=== PATIENT | male | born 1965 | race Caucasian/White ===

== ENCOUNTER 2022-08-26 06:50 | Emergency (ER) | payer OTHER, SELFPAY ==
[2022-08-26 07:08] VITALS: BP 129/87; PULSE 66; RESP 18; TEMP 36.1; O2SAT 100
--- NOTE | 2022-08-26 07:38 | CRLHL7_ITS ---
For Patients: As a result of the Cures Act, medical imaging exams and procedure reports are released immediately into your electronic medical record. You may view this report before your referring provider. If you have questions, please contact your health care provider. INDICATION: Left upper chest pain INDICATION: Left upper chest pain. TECHNIQUE: Chest 1 view. COMPARISON: None FINDINGS: Cardiovascular and mediastinum: Heart size and vasculature are normal in caliber and appearance. Mediastinum is within normal limits. Lungs and pleural space: Lungs are clear. No sign of infiltrate or mass. No sign of pleural effusion. No pneumothorax. Bones and soft tissues: No significant findings. IMPRESSION: There is no acute airspace disease. Dictated by Bruce Worthington MD @ 08/26/2022 7:59:33 AM Dictated by: Bruce Worthington MD @ 08/26/2022 07:59:45 (Electronically Signed)
--- NOTE | 2022-08-26 07:46 | ED_ITS ---
HPI - General Adult General Chief complaint: Chest Pain Stated complaint: Severe chest pains 7+ days Time Seen by Provider: 08/26/22 07:14 History of Present Illness HPI narrative: 56-year-old man presenting to the emergency department with complaint of right chest and upper back pain that has been going on now for steadily increasing over the last week or so. Does not recall a specific injury. Has been doing some travel spending time attending to I believe his [id number] had heart attack. His pain was so bad though he had to leave the cabin where he had been staying returning for evaluation. He is not having radicular symptoms down his arms. Not really pleuritic. Worse with left head flexion or rotation to the left a little bit of his neck. Later in course does acknowledge that he has been aching into his forearm or his thinks he is having some tendon problems in his forearm. Denies a history of discogenic disease. Related Data Home Medications Medication Instructions Recorded Confirmed minocycline 100 mg capsule 100 mg PO DAILY 08/26/22 08/26/22 Allergies Allergy/AdvReac Type Severity Reaction Status Date / Time No Known Drug Allergies Allergy Verified 08/26/22 07:08 Review of Systems Status of ROS: Reports: 6 or more systems reviewed and unremarkable except as noted in History and below [facility] Social History service: No Exam Narrative: Exam Narrative: Clearly very uncomfortable. Wincing and splinting a little bit in discomfort. Very tender to palpation over the rhomboids on the left and and into the left side trapezius and up the paracervical musculature little bit. He has a indicated pain in the left low medial pectoralis. This is not really able to be reproduced. Has a somewhat prominent left clavicle medially versus the right. I do not feel any supraclavicular crepitus. There are no other swellings in the area. Raises his arms over his head without notable difficulty. Lungs appear to be clear. Deep breath though causes some discomfort. Heart in a regular rate and rhythm. Is well perfused with good strength peripherally. No sensory deficits appreciated. Const: Vital Signs, click to edit/add: Vital Signs - 24 hr 08/26/22 07:08 Temperature 97.0 F L Pulse Rate [Right Pulse Oximeter] 66 Respiratory Rate 18 Blood Pressure [Ri ght Upper Arm] 129/87 Pulse Oximetry 100 Oxygen Delivery Me thod Room Air Documenting provider has reviewed patient's vital signs: yes Course Vital Signs Vital signs: Initial Vital Signs Temperature 97.0 F L 08/26/22 07:08 Temperature Source Temporal Artery Scan 08/26/22 07:08 Pulse Rate 66 08/26/22 07:08 Respiratory Rate 18 08/26/22 07:08 Blood Pressure 129/87 08/26/22 07:08 Blood Pressure Mean 101 08/26/22 07:08 Blood Pressure Position Sitting 08/26/22 07:08 Pulse Oximetry 100 08/26/22 07:08 Oxygen Delivery Method Room Air 08/26/22 07:08 Vital Signs Temperature 97.0 F L 08/26/22 07:08 Pulse Rate 66 08/26/22 07:08 Respiratory Rate 18 08/26/22 07:08 Blood Pressure 129/87 08/26/22 07:08 Pulse Oximetry 100 08/26/22 07:08 Oxygen Delivery Method Room Air 08/26/22 07:08 Temperature 97.0 F L 08/26/22 07:08 Pulse Rate 50 L 08/26/22 10:00 Respiratory Rate 18 08/26/22 10:00 Blood Pressure 123/77 08/26/22 10:00 Pulse Oximetry 98 08/26/22 10:00 Oxygen Delivery Method Room Air 08/26/22 08:00 Medical Decision Making MDM Narrative Medical decision making narrative: This appears to be a chest wall/musculoskeletal in origin. I think it would be prudent to do a chest x-ray. Rough evaluation for some larger vessel anomaly but in particular looking for pneumomediastinum or pneumothorax. Duration of persistent pain suggests unlikely to be cardiac in origin. I suspect more of jumped facet and recruitment muscle resulting in some spasming. EKG was already done I have reviewed as below. With this in mind we decided to proceed with anesthetic directly applied to the trapezial and rhomboid musculature. Informed consent obtained and I injected with a total of 15 mL of 0.25 % bupivacaine in these areas. I have ordered also for dose of prednisone and ketorolac. Chest x-ray reviewed by me is without pneumothorax or pneumomediastinum. Seems to have some prominent markings in the right perihilar area but I do not see clear infiltrate or effusion. No acute abnormality. On reassessment is not much changed. Still seems quite uncomfortable. This point will proceed with some cardiac labs. Looking also for potential pulmonary embolus though I doubt this. Will also give couple tabs of Percocet. Pain improved. Seems more tolerable. Labs are unremarkable. See patient discharge plan Lab Data Lab results reviewed: Yes I reviewed the patient's lab results Labs: Lab Results 08/26/22 Range/Units 09:25 D-Dimer Quant (PE/DVT) 0.34 (0.00-0.50) ug/ml C-Reactive Protein 0.7 (0.5-1.0) mg/dL NT-Pro-B Natriuret Pep 131 pg/mL POC Troponin I 0.00 L (0.01-0.04) ng/ml ECG Data Attestation: I personally reviewed and interpreted this ECG as follows: (Normal sinus rhythm rate of 63. No ischemic changes appreciated. ) Discharge Plan Discharge Clinical Impression: Muscle spasm, Chest wall pain Patient Disposition: Home w/ Parent or Adult Condition: Stable Additional Instructions: I am wondering if maybe you have a jumped facet and your neck. And this is causing inflammation resulting muscle spasm. I would do some stretches including neck pull-downs gently a little deeper each time. See handout for upper back stretches and strengthening. Can take up to 800 mg of ibuprofen per dose or alternatively up to 500 mg of naproxen 2 times daily. Either can be combined with up to 1000 mg of a cetaminophen per dose. Keep in mind that each tablet of Percocet contains 325 mg of acetaminophen. Consider alternating warm and cold packs. Might need an appointment for consideration of facet injection or something similar. Could try some [id number] menthol type creams. Maybe also lidocaine patches. Prednisone, cyclobenzaprine, Percocet from [facility]. Take the prednisone as 60 mg daily for 2 days then 40 mg daily for 3 days then 20 mg daily for 3 days. Prescriptions: No Action minocycline 100 mg capsule 100 mg PO DAILY Follow Up/Referrals: Provider,Not a Local [Primary Care Provider] - Stand Alone Forms: [employer] Info Instructions
[2022-08-26 08:00] VITALS: BP 107/74; PULSE 60; RESP 14; O2SAT 95
[2022-08-26] MEDS: BUPIVACAINE 0.25% 30 ML INJECTION (08:10)
[2022-08-26] MEDS: predniSONE 20 MG TABLET 80 MG PO (08:20)
[2022-08-26] MEDS: KETOROLAC 60 MG/2 ML inj IM (08:20)
[2022-08-26 09:00] VITALS: BP 127/83; PULSE 58; RESP 16; O2SAT 99
[2022-08-26] MEDS: OxyCODONE/APAP 5-325 TABLET 2 TAB PO (09:25)
[2022-08-26 09:51] LABS: C Reactive Protein* 0.7 mg/dL (0.5-1.0)
[2022-08-26 09:58] LABS: NT Pro B Type NatriureticPept* 131 pg/mL
[2022-08-26 10:00] VITALS: BP 123/77; PULSE 50; RESP 18; O2SAT 98
[2022-08-26 10:03] LABS: D Dimer Quantitative* 0.34 ug/ml (0.00-0.50)
== END 2022-08-26 10:25 | disposition home or self-care (01) ==
PROVIDERS: Emergency Provider Family Medicine
DX: R07.89 Other chest pain (principal); M62.838 Other muscle spasm
CPT/HCPCS: 36415; 71045; 83880; 84484; 85379; 86140; 96372; 99284; A9270; J1885; J3490; J7512

== ENCOUNTER 2022-09-02 08:16 | Emergency (ER) | payer OTHER, SELFPAY ==
[2022-09-02] VITALS (9 sets, daily range): BP systolic 125–136; BP diastolic 84–95; PULSE 55–71; RESP 16–18; TEMP 35.9; O2SAT 95–99; BMI 25.8
--- NOTE | 2022-09-02 08:35 | CRLHL7_ITS ---
For Patients: As a result of the Century Cures Act, medical imaging exams and procedure reports are released immediately into your electronic medical record. You may view this report before your referring provider. If you have questions, please contact your health care provider. Indication: Neck pain for 2 weeks, no reported injury Technique: Noncontrast axial CT of the cervical spine with coronal and sagittal reformats. Comparison: No relevant comparison studies available at this institution. Findings: Preserved cervical lordosis. No significant spondylolisthesis. Vertebral body heights are within normal limits. No evidence of acute fracture. No suspicious findings in the prevertebral or paraspinal soft tissues. Centrilobular emphysematous changes at the lung apices. C2-C3: Right posterior disc-osteophyte complex. Mild right neural foraminal narrowing. No left neural foraminal or spinal canal stenosis. C3-C4: Posterior disc-osteophyte complex, uncovertebral arthropathy. Moderate bilateral neural foraminal stenosis, right worse than left. Mild spinal canal narrowing. C4-C5: No significant neuroforaminal or spinal canal stenosis. C5-C6: Posterior disc-osteophyte complex, right asymmetric uncovertebral arthropathy. Moderate right neural foraminal stenosis. No significant left neural foraminal or spinal canal stenosis. C6-C7: Posterior disc-osteophyte complex, uncovertebral arthropathy. Moderate right, moderate-severe left neural foraminal stenosis. Mild spinal canal narrowing. C7-T1: No significant neuroforaminal or spinal canal stenosis. Impression: 1. Cervical spondylosis, without evidence of acute osseous abnormality. 2. At C3-4, moderate bilateral neural foraminal stenosis, and mild spinal canal narrowing. 3. At C5-6, moderate right neural foraminal stenosis. 4. At C6-7, moderate right and moderate-severe left neural foraminal stenosis, with mild spinal canal narrowing. Please note that all CT scans at this facility use dose modulation, iterative reconstruction, and/or weight-based dosing when appropriate to reduce radiation dose to as low as reasonably achievable. Dictated by Naheed Cherry MD @ 09/02/2022 10:03:05 AM (Electronically Signed)
--- NOTE | 2022-09-02 08:37 | ED.GENADULT ---
HPI - General Adult General Time Seen by Provider: 08:37 Date Seen: 09/02/22 Chief complaint: Neck Injury/Pain Stated complaint: shoulder/arm pain Time Seen by Provider: 09/02/22 08:20 Source: patient Mode of arrival: ambulatory Limitations: physical limitation History of Present Illness HPI narrative: Patient is a pleasant 56-year-old male who reports he has had about 3-4 weeks of increasing neck pain and left trapezius muscle in periscapular pain. This started with a sore neck when he was traveling to see his father in law who had a heart issue in [facility] in a shortened hotel for about 10 days and developed a sore neck, interestingly he reports his had a sore neck as well. Subsequent to that he had to take another trip and slept in a different bed in his neck continue to be bothersome over the last 2 weeks has had increasing pain in his left lateral neck pain down into his hand pain in his trapezius muscle on the left and tenderness. With certain motions he can exacerbate his pain in his left arm and he feels some numbness in his 4th and 5th finger. He has not had any history of neck pain, no neck trauma, no history of radiculitis. Patient does not drink alcohol and has not had any chemical issues. He denies any other significant medical problems. He has not really notice weakness in his hand but has had the sensory change. The pain will affect his forearm and he feels a discomfort there as well as his primarily in his trapezius muscle and just above his scapula on the left and into his neck. Related Data Home Medications Medication Instructions Recorded Confirmed minocycline 100 mg capsule 100 mg PO DAILY 08/26/22 08/26/22 Previous Rx's Medication Instructions Recorded celecoxib 200 mg capsule (Celebrex) 200 mg PO BID #14 caps 09/02/22 hydrocodone 7.5 mg-acetaminophen 1 tab PO Q8H PRN pain #20 tabs 09/02/22 325 mg tablet prednisone 20 mg tablet 20 mg PO BID 5 days #10 tabs 09/02/22 Allergies Allergy/AdvReac Type Severity Reaction Status Date / Time No Known Drug Allergies Allergy Verified 08/26/22 07:08 Review of Systems Status of ROS: Reports: 6 or more systems reviewed and unremarkable except as noted in History and below PFSH PFSH Social History service: No Exam Narrative: Exam Narrative: Objective: Patient has slightly elevated diastolic blood pressure, he is afebrile In general he is in mild distress and discomfort, clearly worse when moving his neck or elevating his shoulder. He does not complain of any anterior chest pain or breathing difficulty. Neck is got very limited range of motion he has got no midline tenderness, does have some trapezius muscle tenderness on the left as well as cervical strap muscle tenderness. He has a negative impingement sign as he is able to hold up his arms to resistance. He has normal flexion reflex in the left upper extremity and normal strength. Pulses regular Neurologic otherwise nonfocal Const: Vital Signs, click to edit/add: Vital Signs - 24 hr 09/02/22 08:23 09/02/22 09:11 09/02/22 09:11 Temperature 96.6 F L Pulse Rate 64 60 Pulse Rate [Right Pulse Oximeter] 71 Respiratory Rate 18 18 Blood Pressure 136/89 Blood Pressure [Ri ght Upper Arm] 131/95 H Pulse Oximetry 99 98 98 Oxygen Delivery Ne thod Room Air Room Air 09/02/22 09:16 09/02/22 09:30 09/02/22 09:31 Temperature Pulse Rate 58 L 64 Pulse Rate [Right Pulse Oximeter] Respiratory Rate 16 Blood Pressure 125/84 Blood Pressure [Ri ght Upper Arm] Pulse Oximetry 98 97 97 Oxygen Delivery Ne thod Room Air 09/02/22 09:45 09/02/22 10:00 09/02/22 10:02 Temperature Pulse Rate 55 L Pulse Rate [Right Pulse Oximeter] Respiratory Rate 16 Blood Pressure Blood Pressure [Ri ght Upper Arm] Pulse Oximetry 95 96 96 Oxygen Delivery Ne thod Room Air 09/02/22 10:15 Temperature Pulse Rate Pulse Rate [Right Pulse Oximeter] Respiratory Rate Blood Pressure Blood Pressure [Ri ght Upper Arm] Pulse Oximetry 96 Oxygen Delivery Ne thod Room Air Course Vital Signs Vital signs: Initial Vital Signs Temperature 96.6 F L 09/02/22 08:23 Temperature Source Temporal Artery Scan 09/02/22 08:23 Pulse Rate 71 09/02/22 08:23 Respiratory Rate 18 09/02/22 08:23 Blood Pressure 131/95 H 09/02/22 08:23 Blood Pressure Mean 107 H 09/02/22 08:23 Blood Pressure Position Sitting 09/02/22 08:23 Pulse Oximetry 99 09/02/22 08:23 Oxygen Delivery Method Room Air 09/02/22 08:23 Vital Signs Temperature 96.6 F L 09/02/22 08:23 Pulse Rate 71 09/02/22 08:23 Respiratory Rate 18 09/02/22 08:23 Blood Pressure 131/95 H 09/02/22 08:23 Pulse Oximetry 99 09/02/22 08:23 Oxygen Delivery Method Room Air 09/02/22 08:23 Temperature 96.6 F L 09/02/22 08:23 Pulse Rate 55 L 09/02/22 10:02 Respiratory Rate 16 09/02/22 10:02 Blood Pressure 125/84 09/02/22 09:31 Pulse Oximetry 96 09/02/22 10:15 Oxygen Delivery Method Room Air 09/02/22 10:15 Medical Decision Making MDM Narrative Medical decision making narrative: Patient is a 56-year-old male with evidence of cervical radiculopathy. The patient has neck pain followed by significant radicular pain for this worsening over last few days. He did get some prednisone muscle relaxant and steroid and that did seem to help him. He does have an appointment to see [facility] on the 07 of September. He has had no fevers chills weight loss. He has had no anterior chest pain. I think at this time would be reasonable to get a CT scan of his neck to make sure does have a large disc or facet abnormality, and perhaps even set him up for an MRI scan more promptly. I think starting him back on a tapered dose of steroid would be appropriate, will give him IM morphine now, and pain medication as well as some anti-inflammatory medicine for home. Will check some laboratory studies including CRP and make sure there is no inflammatory issue. I suspect he had neck pain and muscle spasm that somehow caused his radiculitis, even possibly a disc herniation. He was comfortable assessment and plan. Addendum: 10:[address] scan of the neck shows cervical spondylosis a without acute osseous abnormality C3-4 moderate bilateral neural foraminal stenosis mild spinal canal narrowing C5-6 moderate right neural foraminal narrowing C6-7 moderate right and moderate severe left neural foraminal narrowing with mild spinal canal narrowing I suspect. I suspect the patient has C6-7 nerve root impingement probably the C8 nerve. I would recommend he get an MRI scan will attempt to get this on Saturday. He does seem to be pretty uncomfortable and I think given the duration of symptoms and the worsening nature of the symptoms I think a MRI would be reasonable. Will retreat him with steroid him follow up with regular doctor next couple of days given some [place] and Celebrex. Ice to the neck regularly in return as needed. Lab Data Labs: Lab Results 09/02/22 Range/Units 08:40 WBC 5.99 (4.50-11.00) K/uL RBC 4.77 (4.30-5.90) m/uL Hgb 14.6 (13.5-17.5) gm/dL Hct 44.2 (37.0-53.0) % MCV 93 (80-100) fL MCH 31 (26-34) pg MCHC 33 (32-36) gm/dL RDW Coeff of Conor 13.6 (11.5-15.5) % Plt Count 164 (140-440) K/uL Neut % (Auto) 65.8 (42.0-72.0) % Lymph % (Auto) 19.9 L (20-44) % [place] % (Auto) 8.8 (0.0-11.0) % Eos % (Auto) 4.5 (0.0-7.0) % Baso % (Auto) 0.3 (0.0-3.0) % Neut # (Auto) 3.94 (1.7-7.0) K/uL Lymph # (Auto) 1.20 (0.90-2.90) K/uL [place] # (Auto) 0.50 (0.00-0.90) K/UL Eos # (Auto) 0.27 (0.00-0.50) K/uL Baso # (Auto) 0.02 (0.00-0.30) K/uL Sodium 135 (135-149) mmol/L Potassium 4.5 (3.6-5.1) mmol/L Chloride 100 (96-114) mmol/L Carbon Dioxide 33 H (20-32) mmol/L BUN 22 (7-30) mg/dL Creatinine 1.0 (0.5-1.5) mg/dL Estimated Creat Clear 81.70 Estimated GFR 89 ml/min Glucose 102 (60-115) mg/dL Calcium 8.7 (8.4-10.6) mg/dL Troponin I < 0.01 L (0.01-0.04) ng/mL C-Reactive Protein 0.7 (0.5-1.0) mg/dL Discharge Plan Discharge Clinical Impression: Left cervical radiculopathy, Muscle spasm Patient Disposition: Home w/ Parent or Adult Condition: Improved Additional Instructions: Ice to the neck 10 minutes 5 times a day as possible, prednisone for about 5 days then start a taper coordinated by your regular physician. Celebrex daily, [place] as needed for pain. Recommend an MRI scan for your neck and primary care follow-up promptly to reassess and keep your appointment with Orthopedics. Light activity. Activity Level: Light activity Discharge Diet: Regular Prescriptions: New prednisone 20 mg tablet 20 mg PO BID 5 Days Qty: 10 0RF celecoxib [Celebrex] 200 mg capsule 200 mg PO BID Qty: 14 2RF hydrocodone-acetaminophen 7.5-325 mg tablet 1 tab PO Q8H PRN (Reason: pain) Qty: 20 0RF No Action minocycline 100 mg capsule 100 mg PO DAILY Follow Up/Referrals: Provider,Not a Local [Primary Care Provider] - Stand Alone Forms: [employer] Info Instructions
[2022-09-02] MEDS: predniSONE 10 MG TABLET 50 MG PO (08:45)
[2022-09-02] MEDS: MORPHINE 10 MG/ML inj IM (08:46)
[2022-09-02 08:48] LABS: Basophils Absolute Auto 0.02 K/uL (0.00-0.30); Basophils Percent Auto 0.3 % (0.0-3.0); Eosinophils Absolute Auto 0.27 K/uL (0.00-0.50); Eosinophils Percent Auto 4.5 % (0.0-7.0); Hematocrit 44.2 % (37.0-53.0); Hemoglobin* 14.6 gm/dL (13.5-17.5); Immature Granulocytes Abs Auto 0.04 K/uL (0.00-0.30); Immature Granulocytes Pct Auto 0.7 %; Lymphocytes Percent Auto 19.9 % (20-44); Mean Corpuscular HGB Conc 33 gm/dL (32-36); Mean Corpuscular Hemoglobin 31 pg (26-34); Mean Corpuscular Volume 93 fL (80-100); Monocytes Percent Auto 8.8 % (0.0-11.0); Neutrophils Absolute Auto 3.94 K/uL (1.7-7.0); Neutrophils Percent Auto 65.8 % (42.0-72.0); Platelet Count* 164 K/uL (140-440); RDW Coefficient of Variation % 13.6 % (11.5-15.5); Red Blood Count 4.77 m/uL (4.30-5.90); White Blood Count* 5.99 K/uL (4.50-11.00)
[2022-09-02 08:53] LABS: Slide Review Reflex No
[2022-09-02 08:59] LABS: Chloride* 100 mmol/L (96-114); Potassium* 4.5 mmol/L (3.6-5.1); Sodium* 135 mmol/L (135-149)
[2022-09-02 09:02] LABS: Estimated Glomerular Filt Rate 89 ml/min
[2022-09-02 09:03] LABS: Blood Urea Nitrogen* 22 mg/dL (7-30); Calcium* 8.7 mg/dL (8.4-10.6); Carbon Dioxide* 33 mmol/L (20-32); Glucose* 102 mg/dL (60-115)
[2022-09-02 09:06] LABS: C Reactive Protein* 0.7 mg/dL (0.5-1.0)
[2022-09-02 09:18] LABS: Troponin I* < 0.01 ng/mL (0.01-0.04)
[2022-09-02] MEDS: ONDANSETRON ODT 4 MG TAB PO (10:31)
== END 2022-09-02 10:36 | disposition home or self-care (01) ==
PROVIDERS: Emergency Provider Family Medicine
DX: M54.12 Radiculopathy, cervical region (principal); M62.838 Other muscle spasm
CPT/HCPCS: 36415; 72125; 80048; 84484; 85025; 86140; 96372; 99284; A9270; J2270; J7512

== ENCOUNTER 2022-09-03 14:22 | Outpatient (CLI) | payer OTHER, SELFPAY ==
--- NOTE | 2022-09-03 14:45 | CRLHL7_ITS ---
For Patients: As a result of the Century Cures Act, medical imaging exams and procedure reports are released immediately into your electronic medical record. You may view this report before your referring provider. If you have questions, please contact your health care provider. INDICATION: Left radiculopathy. COMPARISON: 09/02/2022. TECHNIQUE: Sagittal T1, T2, and STIR sequences. Axial T2/gradient sequences. FINDINGS: Normal vertebral body and facet alignment. No fractures. No vertebral body loss of height. No spondylolisthesis. No ligamentous injury. No suspicious osseous lesions. Normal cord signal. No intradural mass or lesion. C1-2: No spinal canal narrowing. C2-3: Posterior disc bulge. No narrowing of spinal canal. No neural foraminal narrowing. C3-4: Disk degeneration with posterior disc bulging disc osteophyte complex. Mild narrowing of spinal canal. Uncovertebral joint hypertrophy results in moderate bilateral foraminal narrowing. C4-5: No narrowing of the spinal canal. No neural foraminal narrowing. C5-6: Disc degeneration and posterior disc bulging disc osteophyte complex. No narrowing of the spinal canal. Uncovertebral joint hypertrophy results in moderate severe right and mild left neural foraminal narrowing. Potential impingement of the right C6 nerve root. C6-7: Disc generation and posterior disc bulging disc osteophyte complex. Mild narrowing of spinal canal. Uncovertebral joint hypertrophy results in moderate bilateral foraminal narrowing. C7-T1: Disc degeneration. No narrowing of spinal canal. Uncovertebral joint hypertrophy greater on the left results in moderate severe narrowing of the left neural foramen. Mild narrowing of the right neural foramen. Potential impingement of the left C8 nerve root. IMPRESSION: 1. Normal alignment. No fractures. 2. Normal cord signal. 3. Cervical spondylosis. 4. At C3-4, mild narrowing of the spinal canal. Moderate narrowing of the bilateral neural foramina 5. At C5-6, moderate severe right neural foraminal narrowing. Potential impingement of the right C6 nerve root. 6. At C6-7, moderate narrowing of bilateral neural foramina 7. At C7-T1, moderate to severe narrowing of the left neural foramen. Mild narrowing of the right neuroforamen. Potential impingement of the left C8 nerve root Dictated by Kemal Castillo MD @ 09/05/2022 1:36:24 PM (Electronically Signed)
== END 2022-09-03 14:23 | disposition home or self-care (01) ==
LOC: MRI 14:24
PROVIDERS: Visit Provider Family Medicine
DX: M54.12 Radiculopathy, cervical region (principal); M47.892 Other spondylosis, cervical region; M50.21 Other cervical disc displacement, high cervical region; M50.23 Other cervical disc displacement, cervicothoracic region
CPT/HCPCS: 72141

== ENCOUNTER 2023-03-02 15:37 | Emergency (ER) | payer OTHER, SELFPAY ==
[2023-03-02] VITALS (14 sets, daily range): BP systolic 96–138; BP diastolic 64–102; PULSE 72–97; RESP 16–18; TEMP 36.9–37.7; O2SAT 91–98; BMI 28.1
--- NOTE | 2023-03-02 16:30 | ED_ITS ---
HPI - General Adult General Date Seen: 03/02/23 Chief complaint: Abdominal Pain Stated complaint: sharp pain in side Time Seen by Provider: 03/02/23 16:03 History of Present Illness HPI narrative: This is a very pleasant 57-year-old gentleman who presents to the ER today for pleuritic right upper quadrant abdominal pain. He is generally healthy. He has a history of cervical radiculopathy but is much improved since he had so neck surgery about 10 weeks ago. He is not currently on any prescription medications. He is a former smoker but just quit a few months ago on the advice of his neck surgeon. He does not have any chronic heart or lung disease. No p revious history of DVT or PE. He recalls that he had some sharp shooting pain involving his right upper quadrant about a month ago. He does not know what brought it on but it lasted a few days. He will be comfortable he would while he was at rest but would have pain whenever he coughs or whenever he moved tried to bend his torso too far. The pain was not really associated with either drinking. Overall the pain was present off and on and shooting for 2 or 3 days but then gone for about a month. It came back 2 days ago when he woke up from sleep. It has been present whenever he moves wrong, breathes too deeply, or coughs too sharply for the past 2 or 3 days. He also has a mild stuffy nose that began today but is does not really have a ?cough?. He is not short of breath. No anterior chest pain. No flank pain. The pain does not radiate down to his right lower quadrant or groin. The pain does not radiate to his epigastrium or left upper quadrant. He is able to eat normally. Appetite normal. No nausea and vomiting. No association with food. Bowel movements normal. Urination normal. No fevers. No injury. No bruise. No rash. No swelling in his legs. No recent travel. He does note that this morning he also had a development of a stuffy nose. He called his primary care office to try to get an appointment and they advised him to come in to the ER right away. They also mention that they were considering possible gallbladder pathology. He is adopted. His adoptive mother of pancreatic cancer. Related Data Home Medications Medication Instructions Recorded Confirmed minocycline 100 mg capsule 100 mg PO DAILY 03/02/23 03/02/23 Allergies Allergy/AdvReac Type Severity Reaction Status Date / Time No Known Drug Allergies Allergy Verified 08/26/22 07:08 [facility] Social History Smoking Status: Former smoker Do you use any of these nicotine containing products: None Second hand tobacco smoke exposure: No How often do you have a drink containing alcohol: monthly or less How many standard drinks containing alcohol do you have on a typical day: 1 or 2 How often do you have six or more drinks on one occasion: Never AUDIT-C Alcohol total score: 1 Non-prescribed substance use: marijuana (any form) Non-prescribed substance use details: weekly service: No Exam Narrative: Exam Narrative: Constitutional: Appears well-developed and well-nourished. Alert. Conversant. Non toxic. HENT: Head: Atraumatic. Nose: Nose normal. Mouth/Throat: Oral mucosa is clear and moist. no trismus. Pharynx normal. Tonsils symmetric. No tonsillar enlargement, erythema, or exudate. Eyes: Conjunctivae normal. EOM normal. Pupils equal, round, and reactive to light. No scleral icterus. Neck: Normal range of motion. Neck supple. No tracheal deviation present. Cardiovascular: Normal rate, regular rhythm. No gallop. No friction rub. No murmur heard. Symmetric radial artery pulses Pulmonary/Chest: Effort normal. No stridor. No respiratory distress. No wheezes. No rales. No rhonchi . No tenderness. Abdominal: Soft. Bowel sounds normal. No distension. No mass. Marked right upper quadrant tenderness. And positive Mayberry sign. No epigastric or left upper quadrant redness. No CVA tenderness. No lower abdominal tenderness. No rebound. No guarding. Musculoskeletal: RUE: Normal range of motion. No tenderness. No deformity LUE: Normal range of motion. No tenderness. No deformity RLE: Normal range of motion. No edema. No tenderness. No deformity LLE: Normal range of motion. No edema. No tenderness. No deformity Neurological: Alert and oriented to person, place, and time. Normal strength. CN II-VII intact. No sensory deficit. GCS eye subscore is 4. GCS verbal subscore is 5. GCS motor subscore is 6. Normal coordination Skin: No rash or shingles. No bruising. No redness. Skin is warm and dry. No rash noted. No pallor. Normal capillary refill. Psychiatric: Normal mood. Normal affect. Const: Vital Signs, click to edit/add: Vital Signs - 24 hr 03/02/23 15:51 03/02/23 18:42 03/02/23 18:42 Temperature 99.9 F H Pulse Rate 89 Pulse Rate [Pulse Oximeter] 82 90 Respiratory Rate 16 18 Blood Pressure Blood Pressure [Ri ght Upper Arm] 123/79 117/76 Pulse Oximetry 98 98 98 Oxygen Delivery Me thod Room Air Room Air 03/02/23 19:00 03/02/23 19:01 03/02/23 19:07 Temperature 98.4 F Pulse Rate 96 91 Pulse Rate [Pulse Oximeter] Respiratory Rate Blood Pressure 119/101 H Blood Pressure [Ri ght Upper Arm] Pulse Oximetry 98 91 Oxygen Delivery Me thod 03/02/23 19:29 03/02/23 19:30 03/02/23 19:32 Temperature Pulse Rate 87 86 83 Pulse Rate [Pulse Oximeter] Respiratory Rate Blood Pressure 138/102 H 125/89 Blood Pressure [Ri ght Upper Arm] Pulse Oximetry 96 98 97 Oxygen Delivery Me thod 03/02/23 20:00 03/02/23 20:01 03/02/23 20:30 Temperature Pulse Rate 97 72 Pulse Rate [Pulse Oximeter] Respiratory Rate Blood Pressure 117/85 Blood Pressure [Ri ght Upper Arm] Pulse Oximetry 94 94 Oxygen Delivery Me thod 03/02/23 20:32 03/02/23 21:00 03/02/23 21:02 Temperature Pulse Rate 72 76 73 Pulse Rate [Pulse Oximeter] Respiratory Rate Blood Pressure 96/73 109/64 Blood Pressure [Ri ght Upper Arm] Pulse Oximetry 93 94 94 Oxygen Delivery Me thod Course Vital Signs Vital signs: Initial Vital Signs Temperature 99.9 F H 03/02/23 15:51 Temperature Source Temporal Artery Scan 03/02/23 15:51 Pulse Rate 82 03/02/23 15:51 Pulse Rhythm Regular 03/02/23 15:51 Respiratory Rate 16 03/02/23 15:51 Blood Pressure 123/79 03/02/23 15:51 Blood Pressure Mean 93 03/02/23 15:51 Blood Pressure Position Sitting 03/02/23 15:51 Pulse Oximetry 98 03/02/23 15:51 Oxygen Delivery Method Room Air 03/02/23 15:51 Vital Signs Temperature 99.9 F H 03/02/23 15:51 Pulse Rate 82 03/02/23 15:51 Respiratory Rate 16 03/02/23 15:51 Blood Pressure 123/79 03/02/23 15:51 Pulse Oximetry 98 03/02/23 15:51 Oxygen Delivery Method Room Air 03/02/23 15:51 Temperature 98.4 F 03/02/23 19:07 Pulse Rate 73 03/02/23 21:02 Respiratory Rate 18 03/02/23 18:42 Blood Pressure 109/64 03/02/23 21:02 Pulse Oximetry 94 03/02/23 21:02 Oxygen Delivery Method Room Air 03/02/23 18:42 Medical Decision Making MDM Narrative Medical decision making narrative: Very pleasant 57-year-old gentleman who presents to the ER with sharp shooting pain affecting his right upper quadrant. It has been present for the past couple of days and is worse with movement such as bending his torso, coughing, or deep breathing. It is not really related to food. Differential is broad. He is quite tender in the right upper quadrant so in itial concern is for possible gallbladder disease, hepatitis, or less likely, pancreatitis. Laboratory workup and gallbladder ultrasound were obtained and are normal. Differential also includes transverse colitis, right-sided diverticulitis, atypical presentation of appendicitis, kidney stone. Differential would also include right lower rib pathology but the tenderness really seems to be lower than that. Also consider right lower lung pathology such as pneumonia, pleural effusion, PE. CT scan chest abdomen pelvis is fortunately negative for these pathology. Patient was worried that he might have pancreatic cancer. No evidence for any pancreatic tumor on CT imaging. Incidentally he did develop a mild stuffy nose today. His is positive for coronavirus at home. He is positive for COVID on his PCR here in the ER today. Negative for influenza and RSV. At this point he is not having any significant cough. No shortness of breath. No hypoxia. As he is generally healthy with no long-term medical conditions does not qualify as ?high risk? for serious illness for coronavirus and therefore would not be a candidate for Paxlovid. He verbalizes understanding and wants try to manage his coronavirus supportively. Cause of his right upper quadrant pain is unclear. Could be musculoskeletal. Will treat supportively with pain meds for now. Precautions for return to the ER reviewed and need for follow-up reviewed. Questions answered to the best of my ability. Opiate precautions reviewed. Instymeds prescription for hydrocodone. Lab Data Labs: Lab Results 03/02/23 03/02/23 03/02/23 Range/Units 15:51 17:55 18:35 WBC 7.24 (4.50-11.00) K/uL RBC 5.02 (4.30-5.90) m/uL Hgb 15.1 (13.5-17.5) gm/dL Hct 44.8 (37.0-53.0) % MCV 89 (80-100) fL MCH 30 (26-34) pg MCHC 34 (32-36) gm/dL RDW Coeff of Conor 14.0 (11.5-15.5) % Plt Count 138 L (140-440) K/uL Neut % (Auto) 75.5 H (42.0-72.0) % Lymph % (Auto) 11.0 L (20-44) % [place] % (Auto) 12.6 H (0.0-11.0) % Eos % (Auto) 0.4 (0.0-7.0) % Baso % (Auto) 0.4 (0.0-3.0) % Neut # (Auto) 5.50 (1.7-7.0) K/uL Lymph # (Auto) 0.80 L (0.90-2.90) K/uL [place] # (Auto) 0.90 (0.00-0.90) K/UL Eos # (Auto) 0.03 (0.00-0.50) K/uL Baso # (Auto) 0.03 (0.00-0.30) K/uL Abs Immat Gran (auto) 0.01 (0.00-0.30) K/uL Imm/Tot Granulo (auto) 0.1 % Sodium 134 L (135-149) mmol/L Potassium 4.0 (3.6-5.1) mmol/L Chloride 100 (96-114) mmol/L Carbon Dioxide 24 (20-32) mmol/L Anion Gap 10 (7-15) mEq/L BUN 13 (7-30) mg/dL Creatinine 0.9 (0.5-1.5) mg/dL Estimated Creat Clear 89.72 Estimated GFR 101 ml/min Glucose 92 (60-115) mg/dL Calcium 9.1 (8.4-10.6) mg/dL Total Bilirubin 1.5 (0.1-1.5) mg/dL AST 35 (12-35) U/L ALT 59 H (4-50) U/L Alkaline Phosphatase 131 (40-150) U/L Total Protein 8.0 (6.0-8.3) g/dL Albumin 4.8 (3.3-5.0) g/dL Lipase 93 (23-300) U/L Urine Color Dark yellow (Yellow) Urine Appearance Clear (Clear) Urine pH 8.0 (5.0-8.5) Ur Specific [place] 1.020 (1.000-1.030) Urine Protein Negative (Negative) Urine Glucose (UA) Negative (Negative) Urine Ketones 3+ A (Negative) Urine Blood Negative (Negative) Urine Nitrite Negative (Negative) Urine Bilirubin Negative (Negative) Urine Urobilinogen 0.2 (0.2-1.0) Ur Leukocyte Esterase Negative (Negative) Urine RBC 0-2 (0-2) Urine WBC 0-2 (0-5) Urine WBC Clumps None (None) Ur Squamous Epith Cells None (None-Few) Urine Bacteria None (None) SARS-CoV-2 (PCR) POSITIVE SARS-CoV-2 A (Negative) Influenza Type A (PCR) Negative PCR FLU A (Negative) Influenza Type B (PCR) Negative PCR FLU B (Negative) RSV (PCR) Negative PCR RSV (Negative) Imaging Data CT scan - abdomen: Attestation: I have reviewed the pertinent imaging results. Radiologist's impression: FINDINGS: Stable subpleural nodule within the right lower lobe measuring 0.5 cm. Lung bases are otherwise clear. The liver is unremarkable. Stable hypoattenuating area within the inferior spleen. Pancreas and adrenal glands are unremarkable. The kidneys enhance symmetrically without hydronephrosis. Stable left renal cysts. The gallbladder is nondistended. There is mild circumferential wall thickening of the bladder which appears similar to prior exams. There are no dilated loops of small bowel to suggest obstruction.The appendix is normal.There is no intraperitoneal free air or fluid. Small fat containing bilateral inguinal hernias. The bones are unremarkable. IMPRESSION: Stable CT of the abdomen and pelvis. No acute abnormality to explain pain. US Galbladder: Attestation: I have reviewed the pertinent imaging results. Radiologist's impression: IMPRESSION: No cholelithiasis, cholecystitis, or biliary obstruction. CT scan - chest: Attestation: I have reviewed the pertinent imaging results. Radiologist's impression: IMPRESSION: 1. No evidence of pulmonary embolism or acute pulmonary process. 2. Emphysema. Discharge Plan Discharge Clinical Impression: Abdominal pain, RUQ Patient Disposition: Home, Self-Care Condition: Stable Instructions: Abdominal Pain (ED) Additional Instructions: As we discussed, at this time your workup is reassuring. The cause of her pain is not clear but could possibly be musculoskeletal. For now we will treat your pain supportively with pain medications. If you have worsening pain, high fever, jaundice, vomiting blood, bloody stools, or any concerns, please come back to the ER right away to be rechecked. He will also have coronavirus. This is likely the cause for your cough. At th is point your oxygen levels are normal. Since you do not fall into the ?high risk? category you do not qualify for treatment with Paxlovid. Please treat her symptoms with hydration, Tylenol or ibuprofen for fever, as you would for any cold. Monitor carefully. If you have worsening trouble breathing or oxygen levels below 90%, please return to the ER immediately to be rechecked. Prescriptions: No Action minocycline 100 mg capsule 100 mg PO DAILY Follow Up/Referrals: Provider,Not a Local [Primary Care Provider] - Stand Alone Forms: [employer] Info Instructions
[2023-03-02 16:47] LABS: PCR FLU A Negative PCR FLU A (Negative); PCR FLU B Negative PCR FLU B (Negative); PCR RSV Negative PCR RSV (Negative)
[2023-03-02 16:51] LABS: SARS PCR* POSITIVE SARS-CoV-2 (Negative)
--- NOTE | 2023-03-02 17:11 | CRLHL7_ITS ---
For Patients: As a result of the Cures Act, medical imaging exams and procedure reports are released immediately into your electronic medical record. You may view this report before your referring provider. If you have questions, please contact your health care provider. INDICATION: Right upper quadrant abdomen pain. TECHNIQUE: Ultrasound abdomen limited. Sonographic images of the gallbladder were obtained using varela-scale and color Doppler images. COMPARISON: None. FINDINGS: Gallbladder: No stones or sludge. Normal wall thickness. No pericholecystic fluid. Negative sonographic Mayberry sign. Common bile duct: 3 mm. IMPRESSION: No cholelithiasis, cholecystitis, or biliary obstruction. Dictated by Joseluis Gabriel MD @ 03/02/2023 7:13:17 PM (Electronically Signed)
--- NOTE | 2023-03-02 18:35 | CRLHL7_ITS ---
For Patients: As a result of the Century Cures Act, medical imaging exams and procedure reports are released immediately into your electronic medical record. You may view this report before your referring provider. If you have questions, please contact your health care provider. INDICATION: Right lower rib and right upper quadrant pain TECHNIQUE: CT abdomen and pelvis acquired with IV contrast. 95 cc of Isovue 370 contrast was administered intravenously. COMPARISON: CT abdomen and pelvis 05/26/2020 FINDINGS: Stable subpleural nodule within the right lower lobe measuring 0.5 cm. Lung bases are otherwise clear. The liver is unremarkable. Stable hypoattenuating area within the inferior spleen. Pancreas and adrenal glands are unremarkable. The kidneys enhance symmetrically without hydronephrosis. Stable left renal cysts. The gallbladder is nondistended. There is mild circumferential wall thickening of the bladder which appears similar to prior exams. There are no dilated loops of small bowel to suggest obstruction.The appendix is normal.There is no intraperitoneal free air or fluid. Small fat containing bilateral inguinal hernias. The bones are unremarkable. IMPRESSION: Stable CT of the abdomen and pelvis. No acute abnormality to explain pain. Dictated by Billie Edward MD @ 03/02/2023 9:04:46 PM Please note that all CT scans at this facility use dose modulation, iterative reconstruction, and/or weight-based dosing when appropriate to reduce radiation dose to as low as reasonably achievable. Dictated by: Billie Edward MD @ 03/02/2023 21:04:58 (Electronically Signed)
--- NOTE | 2023-03-02 18:36 | CRLHL7_ITS ---
For Patients: As a result of the Century Cures Act, medical imaging exams and procedure reports are released immediately into your electronic medical record. You may view this report before your referring provider. If you have questions, please contact your health care provider. INDICATION: Right lower rib pain. TECHNIQUE: CT chest PE was acquired with 95 cc Isovue 370 IV contrast. COMPARISON: CT chest 05/26/2020. FINDINGS: Heart and vasculature: Contrast opacification of the pulmonary arterial tree is adequate. No sign of pulmonary embolism. Heart size is normal. Thoracic aorta and pulmonary artery are normal in caliber. Lungs and pleura: Emphysema. Stable few scattered pulmonary nodules, such as a 6 mm right lower lobe subpleural nodule (series 4, image 123) and 3 mm left lower lobe nodule (series 4, image 125), likely benign given small size and long-term stability. No new nodule. No acute infiltrates. No pleural effusions, pleural thickening, or pneumothorax. Lymph nodes/mediastinum: No mediastinal, hilar, or axillary adenopathy. Thyroid gland is unremarkable. Chest wall: No masses. Upper abdomen: Please refer to separate CT abdomen and pelvis. Bones: C7-T1 ACDF. IMPRESSION: 1. No evidence of pulmonary embolism or acute pulmonary process. 2. Emphysema. Please note that all CT scans at this facility use dose modulation, iterative reconstruction, and/or weight-based dosing when appropriate to reduce radiation dose to as low as reasonably achievable. Dictated by Clifford Maxwell MD @ 03/02/2023 9:18:51 PM (Electronically Signed)
[2023-03-02 18:45] LABS: Basophils Absolute Auto 0.03 K/uL (0.00-0.30); Basophils Percent Auto 0.4 % (0.0-3.0); Eosinophils Absolute Auto 0.03 K/uL (0.00-0.50); Eosinophils Percent Auto 0.4 % (0.0-7.0); Hematocrit 44.8 % (37.0-53.0); Hemoglobin* 15.1 gm/dL (13.5-17.5); Immature Granulocytes Abs Auto 0.01 K/uL (0.00-0.30); Immature Granulocytes Pct Auto 0.1 %; Mean Corpuscular HGB Conc 34 gm/dL (32-36); Mean Corpuscular Hemoglobin 30 pg (26-34); Mean Corpuscular Volume 89 fL (80-100); Monocytes Percent Auto 12.6 % (0.0-11.0); Neutrophils Percent Auto 75.5 % (42.0-72.0); Platelet Count* 138 K/uL (140-440); Red Blood Count 5.02 m/uL (4.30-5.90); White Blood Count* 7.24 K/uL (4.50-11.00)
[2023-03-02 18:49] LABS: Slide Review Reflex No
[2023-03-02 18:56] LABS: Chloride* 100 mmol/L (96-114)
[2023-03-02 18:57] LABS: Albumin* 4.8 g/dL (3.3-5.0); Sodium* 134 mmol/L (135-149)
[2023-03-02 19:00] LABS: Alanine Aminotransferase* 59 U/L (4-50); Alkaline Phosphatase* 131 U/L (40-150); Anion Gap 10 mEq/L (7-15); Aspartate Amino Transferase* 35 U/L (12-35); Bilirubin Total* 1.5 mg/dL (0.1-1.5); Blood Urea Nitrogen* 13 mg/dL (7-30); Carbon Dioxide* 24 mmol/L (20-32); Creatinine* 0.9 mg/dL (0.5-1.5); Est. Creatinine Clearance* 89.72; Estimated Glomerular Filt Rate 101 ml/min; Glucose* 92 mg/dL (60-115); Lipase* 93 U/L (23-300)
[2023-03-02 19:01] LABS: Calcium* 9.1 mg/dL (8.4-10.6)
[2023-03-02 21:06] LABS: Appearance Urine Clear (Clear); Bilirubin Urine Negative (Negative); Blood Urine Negative (Negative); Color Urine Dark yellow (Yellow); Glucose Urine Negative (Negative); Ketones Urine 3+ (Negative); Leukocyte Esterase Urine Negative (Negative); Nitrite Urine Negative (Negative); Protein Urine Negative (Negative); Urobilinogen Urine 0.2 (0.2-1.0)
[2023-03-02 21:16] LABS: RBC Urine 0-2 (0-2); WBC Urine 0-2 (0-5)
== END 2023-03-02 22:01 | disposition home or self-care (01) ==
PROVIDERS: Emergency Provider Emergency Medicine
DX: R10.11 Right upper quadrant pain (principal)
CPT/HCPCS: 36415; 71275; 74177; 76705; 80053; 81001; 83690; 85025; 87631; 99284; 99285; Q9967